=== PATIENT | male | born 1990 | race Caucasian/White ===

== ENCOUNTER 2018-10-04 00:35 | Emergency (ER) | payer BC ==
[~2018-10-04] VITALS: Ht 175.3 cm; Wt 94.3 kg
[2018-10-04 00:40] VITALS: Ht 175.3 cm; Wt 94.3 kg
[2018-10-04 01:21] LABS: microscopic required? NO
[2018-10-04 01:43] LABS: CALCIUM 8.2 mg/dL (8.5-10.1); CARBON DIOXIDE 29.1 mmol/L (21-32); CHLORIDE SERUM 109 mmol/L (98-107); CREATININE SERUM 0.9 mg/dL (0.7-1.3); GFR1 > 60 mL/min; GLUCOSE SERUM 108 mg/dL (74-106); POTASSIUM SERUM 3.6 mmol/L (3.5-5.1); SODIUM SERUM 146 mmol/L (136-145)
[2018-10-04 01:50] LABS: ALBUMIN 3.7 g/dL (3.4-5.0); ALKALINE PHOSPHATASE 124 U/L (46-116); ALT/SGPT 104 U/L (16-63); AST/SGOT 39 U/L (15-37); BILIRUBIN TOTAL 0.16 mg/dL (0.20-1.00); TOTAL PROTEIN, SERUM 8.2 g/dL (6.4-8.2)
[2018-10-04 01:52] LABS: UA SPECIFIC GRAVITY <=1.005 (1.005-1.035); urine erythrocyte NEGATIVE (NEGATIVE)
[2018-10-04 01:59] LABS: AMPHETAMINE QUAL UR NONE DETECTED (See below)
[2018-10-04 02:16] LABS: BASOPHIL % 0.5 % (0-2); PLATELET COUNT 319 x10^3mcL (130-400); RED CELL DISTRIBUTION WIDTH 16.7 % (11.5-14.5)
[2018-10-04 19:16] VITALS: BP 150/93
== END 2018-10-04 19:16 | disposition home or self-care (01) ==
LOC: ED 00:35
PROVIDERS: Emergency Medicine
DX: T14.91XA Suicide attempt, initial encounter (principal); X83.8XXA Intentional self-harm by other specified means, initial encounter; Y93.89 Activity, other specified; Y92.89 Other specified places as the place of occurrence of the external cause; Y99.8 Other external cause status; Z88.6 Allergy status to analgesic agent
CPT/HCPCS: 36415; G0480; Q0162

== ENCOUNTER 2019-12-28 10:55 | Emergency (ER) | payer BC ==
[~2019-12-28] VITALS: Ht 172.7 cm; Wt 95.3 kg
[2019-12-28 11:02] VITALS: Ht 172.7 cm; Wt 95.3 kg
[2019-12-28 11:40] LABS: BASOPHIL % 0.3 % (0-2); PLATELET COUNT 207 x10^3mcL (130-400); RED CELL DISTRIBUTION WIDTH 13.4 % (11.5-14.5)
[2019-12-28 12:10] LABS: CALCIUM 9.3 mg/dL (8.5-10.1); CARBON DIOXIDE 21.7 mmol/L (21-32); CHLORIDE SERUM 98 mmol/L (98-107); GFR1 > 60 mL/min; GLUCOSE SERUM 115 mg/dL (74-106); POTASSIUM SERUM 3.8 mmol/L (3.5-5.1); SODIUM SERUM 135 mmol/L (136-145)
[2019-12-28 12:14] LABS: ALBUMIN 4.1 g/dL (3.4-5.0); ALKALINE PHOSPHATASE 88 U/L (46-116); ALT/SGPT 144 U/L (16-63); AST/SGOT 75 U/L (15-37); BILIRUBIN TOTAL 0.4 mg/dL (0.20-1.00); TOTAL PROTEIN, SERUM 8.2 g/dL (6.4-8.2)
[2019-12-28 14:59] VITALS: BP 114/75
== END 2019-12-28 14:59 | disposition home or self-care (01) ==
LOC: ED 10:55
PROVIDERS: Emergency Medicine
DX: R55 Syncope and collapse (principal); M54.5 Low back pain; G89.29 Other chronic pain; Z88.6 Allergy status to analgesic agent
CPT/HCPCS: 82962; G0480